=== PATIENT | female | born 1940 | race Caucasian/White ===

== ENCOUNTER 2018-05-04 18:30 | Emergency (ER) | payer MEDICARE, BC ==
[~2018-05-04] VITALS: Ht 160 cm; Wt 57.0 kg
[~2018-05-04 18:30] MED LIST: ATOR20TA15 PO; BIOT50005 PO; CLOP75TA PO; DETR2TAB PO; LEVO75TA3 PO; METO1TAB42 PO; PARO10TA3 PO; PRAM1TAB PO; PROB1CAP25
[2018-05-04 19:04] VITALS: BP 129/58; PULSE 54; RESP 18; TEMP 98.1; O2SAT 96
[2018-05-04 23:23] LABS: AUTOMATED NEUTROPHIL # 2.8 TH/MM3 (1.8-7.7); BASOPHIL % 0.6 % (0.0-2.0); EOSINOPHIL # 0.1 TH/MM3 (0-0.4); EOSINOPHIL % 1.7 % (0.0-4.0); HEMATOCRIT 35.3 % (35.0-46.0); HEMOGLOBIN 11.9 GM/DL (11.6-15.3); LYMPH % 36.5 % (9.0-44.0); MEAN CELL VOLUME 86.2 FL (80.0-100.0); MEAN CORPUSCULAR HGB CONC 33.7 % (32.0-36.0); MEAN PLATELET VOLUME 6.8 FL (7.0-11.0); MONO % 10.1 % (0.0-8.0); MONOCYTE # 0.5 TH/MM3 (0-0.9); NEUT % 51.1 % (16.0-70.0); PLATELET COUNT 275 TH/MM3 (150-450); RED CELL DISTRIBUTION WIDTH 13.9 % (11.6-17.2); WHITE BLOOD COUNT 5.4 TH/MM3 (4.0-11.0)
[2018-05-04 23:40] LABS: ALBUMIN 3.5 GM/DL (3.4-5.0); AST (GOT) 15 U/L (15-37); BICARBONATE 26.6 MEQ/L (21.0-32.0); BLOOD UREA NITROGEN 17 MG/DL (7-18); CALCIUM 8.9 MG/DL (8.5-10.1); CHLORIDE 108 MEQ/L (98-107); CREATININE 0.81 MG/DL (0.50-1.00); GLOMERULAR FILTRATION RATE 68 ML/MIN (>89); GLUCOSE,RANDOM 96 MG/DL (74-106); SODIUM (NA) 142 MEQ/L (136-145)
[2018-05-04 23:43] LABS: ALKALINE PHOSPHATASE 84 U/L (45-117); ALT (GPT) 18 U/L (10-53); TOTAL BILIRUBIN ADULT 0.4 MG/DL (0.2-1.0); TOTAL PROTEIN 7.3 GM/DL (6.4-8.2)
[2018-05-04 23:51] LABS: PROTHROMBIN TIME - PATIENT 10.4 SEC (9.8-11.6)
--- NOTE | 2018-05-05 01:05 | PD ---
HPI Chief Complaint: GI Complaint Time Seen by Provider: 22:47 Travel History International Travel<30 days: No Contact w/Intl Traveler<30days: No Traveled to known affect area: No History of Present Illness HPI Patient is a 77-year-old female who comes in complaining of diarrhea area. She says that she has had diarrhea for several months, but yesterday she had an episode where she could not control it. She says it has been black in color. She does have history of taking iron, but says she has not taken in the past few days. She says that she called her gastroenterology office and they told her she needed to come to the emergency department. She denies any abdominal pain. She denies any feelings of dizziness, shortness of breath, palpitations. She denies any recent antibiotic use. She denies any nausea or vomiting. Nothing has seemed to make the symptoms better or worse. Severity is mild to moderate. 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 2014) Coronary Artery Disease: Yes Diabetes: No Diminished Hearing: No Gastrointestinal Disorders: Yes GERD: Yes Genitourinary: Yes (NEEDS SURGERY, BLADDER PROLAPSE) Headaches: Yes Hiatal Hernia: No Immune Disorder: No Kidney Stones: No Musculoskeletal: No Neurologic: Yes (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 DOING NOTHING AT THIS TIME) Psychiatric: No Reproductive: Yes Respiratory: No Immunizations Current: Yes Migraines: No Radiation Therapy: No Renal Failure: No Seizures: No Sickle Cell Disease: No Sleep Apnea: No Thyroid Disease: Yes Ulcer: No Tetanus Vaccination: < 5 Years Influenza Vaccination: Yes ?: Not Menopausal: Yes Past Surgical History Abdominal Surgery: Yes (HYSTERECTOMY) AICD: No Appendectomy: Yes (IN 1977) Arteriovenous Shunt: No Cardiac Surgery: No Ear Surgery: No Endocrine Surgery: No Eye Surgery: No Genitourinary Surgery: Yes (BLADDER TUCK 1 MONTH AGO, PESSARY IN PLACE) Gynecologic Surgery: Yes (HYSTERECTOMY) Hysterectomy: Yes Insulin Pump: No Joint Replacement: No Oral Surgery: Yes (BOTH JAWS BONE AND METAL IMPLANT) Pacemaker: No Thoracic Surgery: No Other Surgery: Yes Social History Alcohol Use: No Tobacco Use: No Substance Use: No Allergies-Medications (Allergen,Severity, Reaction): Coded Allergies: aspirin (Verified Allergy, Severe, 05/04/18) nausea codeine (Unverified Allergy, Severe, Nausea/Vomiting, 05/04/18) oxycodone (Verified Allergy, Severe, 05/04/18) nausea Reported Meds & Prescriptions Reported Meds & Active Scripts Active Detrol (Tolterodine Tartrate) 2 Mg Tab 2 Mg PO BID Reported Culturelle Advanced Immun (Probiotic Product) 1 Cap Cap Clopidogrel (Clopidogrel Bisulfate) 75 Mg Tab 75 Mg PO DAILY Levothyroxine (Levothyroxine Sodium) 75 Mcg Tab 75 Mcg PO DAILY Pramipexole (Pramipexole Dihydrochloride) 1 Mg Tab 1 Mg PO TID Metoprolol Succinate ER 24 HR (Metoprolol Succinate) 25 Mg Tab 25 Mg PO BID Paroxetine (Paroxetine HCl) 10 Mg Tab 10 Mg PO DAILY Biotin 5,000 Mcg Cap 5,000 Mcg PO Atorvastatin (Atorvastatin Calcium) 20 Mg Tab 20 Mg PO HS Review of Systems Except as stated in HPI: all other systems reviewed are Neg General / Constitutional: No: Fever, Chills HENT: No: Headaches Cardiovascular: No: Chest Pain or Discomfort Respiratory: No: Shortness of Breath Gastrointestinal: Positive: Diarrhea, No: Nausea, Vomiting, Abdominal Pain Genitourinary: No: Dysuria Musculoskeletal: No: Myalgias, Edema Skin: No Rash, No Change in Pigmentation Neurologic: No: Weakness, Dizziness Physical Exam Narrative GENERAL: Awake and alert, in no acute distress. SKIN: Focused skin assessment warm/dry. HEAD: Atraumatic. Normocephalic. EYES: Pupils equal and round. No scleral icterus. ENT: Mucous membranes pink and moist. NECK: Trachea midline. No JVD. CARDIOVASCULAR: Regular rate and rhythm. No murmur appreciated. RESPIRATORY: No accessory muscle use. Clear to auscultation. Breath sounds equal bilaterally. GASTROINTESTINAL: Abdomen soft, non-tender, nondistended. MUSCULOSKELETAL: No obvious deformities. No clubbing. No cyanosis. No edema. NEUROLOGICAL: Awake and alert. No obvious cranial nerve deficits. Motor grossly within normal limits. Normal speech. PSYCHIATRIC: Appropriate mood and affect; insight and judgment normal. Data Data Last Documented VS Vital Signs Date Time Temp Pulse Resp B/P (MAP) Pulse Ox O2 Delivery O2 Flow Rate FiO2 05/04/18 19:04 98.1 54 18 129/58 (81) 96 Orders Orders Iv Access Insert/Monitor (05/04/18 22:49) Complete Blood Count With Diff (05/04/18 22:49) Comprehensive Metabolic Panel (05/04/18 22:49) Act Partial Throm Time (Ptt) (05/04/18 22:49) Prothrombin Time / Inr (Pt) (05/04/18 22:49) Type And Screen (05/04/18 22:49) Ct Abd/Pel W Iv Contrast(Rout) (05/05/18 ) Ed Discharge Order (05/05/18 02:41) Iohexol 350 Inj (Omnipaque 350 Inj) (05/05/18 02:00) Labs Laboratory Tests Test 05/04/18 23:05 White Blood Count 5.4 TH/MM3 Red Blood Count 4.10 MIL/MM3 Hemoglobin 11.9 GM/DL Hematocrit 35.3 % Mean Corpuscular Volume 86.2 FL Mean Corpuscular Hemoglobin 29.0 PG Mean Corpuscular Hemoglobin Concent 33.7 % Red Cell Distribution Width 13.9 % Platelet Count 275 TH/MM3 Mean Platelet Volume 6.8 FL Neutrophils (%) (Auto) 51.1 % Lymphocytes (%) (Auto) 36.5 % Monocytes (%) (Auto) 10.1 % Eosinophils (%) (Auto) 1.7 % Basophils (%) (Auto) 0.6 % Neutrophils # (Auto) 2.8 TH/MM3 Lymphocytes # (Auto) 2.0 TH/MM3 Monocytes # (Auto) 0.5 TH/MM3 Eosinophils # (Auto) 0.1 TH/MM3 Basophils # (Auto) 0.0 TH/MM3 CBC Comment DIFF FINAL Differential Comment Prothrombin Time 10.4 SEC Prothromb Time International Ratio 1.0 RATIO Activated Partial Thromboplast Time 26.8 SEC Blood Urea Nitrogen 17 MG/DL Creatinine 0.81 MG/DL Random Glucose 96 MG/DL Total Protein 7.3 GM/DL Albumin 3.5 GM/DL Calcium Level 8.9 MG/DL Alkaline Phosphatase 84 U/L Aspartate Amino Transf (AST/SGOT) 15 U/L Alanine Aminotransferase (ALT/SGPT) 18 U/L Total Bilirubin 0.4 MG/DL Sodium Level 142 MEQ/L Potassium Level 3.8 MEQ/L Chloride Level 108 MEQ/L Carbon Dioxide Level 26.6 MEQ/L Anion Gap 7 MEQ/L Estimat Glomerular Filtration Rate 68 ML/MIN MDM Medical Decision Making Medical Screen Exam Complete: Yes Emergency Medical Condition: Yes Medical Record Reviewed: Yes Differential Diagnosis GI bleed versus dehydration versus electrolyte abnormality versus colitis versus chronic diarrhea Narrative Course Patient is a 69-year-old female comes in complaining of diarrhea. Exam shows no acute abnormalities, abdomen is soft and nontender. IV established, labs sent. Labs show hemoglobin of 11.9. There are no acute abnormalities. Patient pending CT scan, will likely be discharged home to follow up with her PCP. [facility] Point of Care Internal Pos. & Neg. Controls: Passed Fecal Specimen Occult Blood: Negative Mary Ellen Bethea MD May 05, 2018 01:05
[2018-05-05] MEDS ORDERED: IOHEXOL 350 MG/ML 10 ML VIAL (for RAD DIAG) IVCONTRAST ONE (02:00)
--- NOTE | 2018-05-05 02:38 | RADRPT ---
EXAM DATE: 05/05/2018 2:27 AM EDT AGE/SEX: 77 years / Female INDICATIONS: Abdomen pain. CLINICAL DATA: This is the patient's initial encounter. Patient reports that signs and symptoms have been present for 1 day and indicates a pain score of 4/10. MEDICAL/SURGICAL HISTORY: Stroke. Cardiovascular disease. Aneurysm, intracranial. Craniotomy. Hysterectomy. CABG. Appendectomy.Bladder. ORAL CONTRAST: No oral contrast ingested. RADIATION DOSE: 6.64 CTDI (mGy) COMPARISON: No prior exams available for comparison. TECHNIQUE: Multiple contiguous axial images were obtained through the abdomen and pelvis following b olus infusion of 100 ml Omnipaque 350 (iohexol) nonionic water-soluble contrast as a single exam do se. No oral contrast ingested. Using automated exposure control and adjustment of the mA and/or kV a ccording to patient size, the radiation dose was kept as low as reasonably achievable to obtain optim al diagnostic quality images. FINDINGS: Lower Lungs: The visualized lower lungs are clear. Liver: The liver has a homogeneous density without space-occupying lesion. There is no dilation of th e biliary tree. Spleen: Homogeneous density without enlargement. Pancreas: Unremarkable without mass or calcification. Kidneys: 2.8 cm cyst in the lower pole of the left kidney. 2.3 cm cyst in the lower pole of the righ t kidney. No evidence of hydronephrosis. Adrenal Glands: Unremarkable. Aorta: Diffuse aortic calcification. Aortic diameter within normal limits. Bowel/Mesentery: Scattered colonic diverticula. No evidence of acute diverticulitis. No evidence of bowel dilatation. Appendix not identified. Nonspecific wall thickening of the gastric antrum indicati ng possible gastritis or peptic ulcer disease. No free air or free fluid. Small hiatal hernia. Abdominal Wall: Intact. Retroperitoneum: No evidence of adenopathy in the retrocrural, para-aortic, or deep pelvic regions. Bladder: Contours are smooth. Reproductive Organs: Status post hysterectomy. Inguinal: 2 cm fat-containing inguinal hernia on the right. Bony Structures: Prominent facet arthrosis of the lower lumbar spine. CONCLUSION: 1. Gastric antral wall thickening. Question gastritis or peptic ulcer disease. 2. No other acute findings in the abdomen and pelvis. 3. Colonic diverticula. 4. Bilateral renal cysts. 5. 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 6. Fat-containing right inguinal hernia. Electronically signed by: Dada Martínez MD 05/05/2018 2:37 AM EDT
--- NOTE | 2018-05-05 02:47 | PD ---
Physical Exam Date Seen by Provider: May 05, 2018 Time Seen by Provider: 02:41 Narrative GENERAL: This is a well-nourished, well-developed patient, in no apparent distress. SKIN: No rashes, ecchymoses or lesions. Warm and dry. HEAD: Atraumatic. Normocephalic. EYES: PERRL, EOMI, no discharge or injection. No scleral icterus. EARS: Clear NOSE: Nasal turbinates appear normal. THROAT: Mucosa pink and moist. Airway patent. NECK: Trachea midline. supple, moves head freely. LUNGS: Clear to auscultation. CV: Regular in rhythm. ABDOMEN: Soft nontender. EXT: No clubbing cyanosis or edema. Data Data Last Documented VS Vital Signs Date Time Temp Pulse Resp B/P (MAP) Pulse Ox O2 Delivery O2 Flow Rate FiO2 05/04/18 19:04 98.1 54 18 129/58 (81) 96 Orders Orders Iv Access Insert/Monitor (05/04/18 22:49) Complete Blood Count With Diff (05/04/18 22:49) Comprehensive Metabolic Panel (05/04/18 22:49) Act Partial Throm Time (Ptt) (05/04/18 22:49) Prothrombin Time / Inr (Pt) (05/04/18 22:49) Type And Screen (05/04/18 22:49) Ct Abd/Pel W Iv Contrast(Rout) (05/05/18 ) Ed Discharge Order (05/05/18 02:41) Labs Laboratory Tests Test 05/04/18 23:05 White Blood Count 5.4 TH/MM3 Red Blood Count 4.10 MIL/MM3 Hemoglobin 11.9 GM/DL Hematocrit 35.3 % Mean Corpuscular Volume 86.2 FL Mean Corpuscular Hemoglobin 29.0 PG Mean Corpuscular Hemoglobin Concent 33.7 % Red Cell Distribution Width 13.9 % Platelet Count 275 TH/MM3 Mean Platelet Volume 6.8 FL Neutrophils (%) (Auto) 51.1 % Lymphocytes (%) (Auto) 36.5 % Monocytes (%) (Auto) 10.1 % Eosinophils (%) (Auto) 1.7 % Basophils (%) (Auto) 0.6 % Neutrophils # (Auto) 2.8 TH/MM3 Lymphocytes # (Auto) 2.0 TH/MM3 Monocytes # (Auto) 0.5 TH/MM3 Eosinophils # (Auto) 0.1 TH/MM3 Basophils # (Auto) 0.0 TH/MM3 CBC Comment DIFF FINAL Differential Comment Prothrombin Time 10.4 SEC Prothromb Time International Ratio 1.0 RATIO Activated Partial Thromboplast Time 26.8 SEC Blood Urea Nitrogen 17 MG/DL Creatinine 0.81 MG/DL Random Glucose 96 MG/DL Total Protein 7.3 GM/DL Albumin 3.5 GM/DL Calcium Level 8.9 MG/DL Alkaline Phosphatase 84 U/L Aspartate Amino Transf (AST/SGOT) 15 U/L Alanine Aminotransferase (ALT/SGPT) 18 U/L Total Bilirubin 0.4 MG/DL Sodium Level 142 MEQ/L Potassium Level 3.8 MEQ/L Chloride Level 108 MEQ/L Carbon Dioxide Level 26.6 MEQ/L Anion Gap 7 MEQ/L Estimat Glomerular Filtration Rate 68 ML/MIN [facility] Medical Record Reviewed: Yes Supervised Visit with JENNIFER: Yes Interpretation(s) Last 24 hours Impressions Abdomen/Pelvis CCBC & BMP Diagram 05/04/18 23:05 Total Protein 7.3, Albumin 3.5, Calcium Level 8.9, Alkaline Phosphatase 84, Aspartate Amino Transf (AST/SGOT) 15, Alanine Aminotransferase (ALT/SGPT) 18, Total Bilirubin 0.4 T 05/05/18 0000 Signed Impressions: CONCLUSION: 1. Gastric antral wall thickening. Question gastritis or peptic ulcer disease. 2. No other acute findings in the abdomen and pelvis. 3. Colonic diverticula. 4. Bilateral renal cysts. 5. 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 6. Fat-containing right inguinal hernia. Differential Diagnosis . Narrative Course I was asked to review the patient's CAT scan and make a disposition on this patient. The CAT scan has been read and shows no acute intra-abdominal process. Patient does have diverticuli but no obvious diverticulitis. Patient's hemoglobin and white count are normal. Patient's exam is reassuring. Patient states that she has not had diarrhea in the last 24 hours. This is This is diarrhea, dark stools Diagnosis Primary Impression: Diarrhea Additional Impression: Dark stools Patient Instructions: General Instructions Additional Instruction: Rest. Increase fluids. Contact Dr. Molina your GI doctor in the morning for close follow-up. Follow-up with Dr. Page your primary care doctor this week for recheck. Return to the ER for worsening symptoms. Med/Other Pt SpecificInfo: No Change to Meds Disposition: 01 DISCHARGE HOME Condition: Stable Sher Lynne May 05, 2018 02:47
== END 2018-05-05 05:50 | disposition home or self-care (01) ==
LOC: NEPD 18:30
DX: R19.7 Diarrhea, unspecified (principal); K57.30 Diverticulosis of large intestine without perforation or abscess without bleeding; K40.90 Unilateral inguinal hernia, without obstruction or gangrene, not specified as recurrent; N28.1 Cyst of kidney, acquired; E78.00 Pure hypercholesterolemia, unspecified; E07.9 Disorder of thyroid, unspecified; I25.10 Atherosclerotic heart disease of native coronary artery without angina pectoris; I48.91 Unspecified atrial fibrillation; Z79.02 Long term (current) use of antithrombotics/antiplatelets
CPT/HCPCS: 74177; 80053; 85025; 85610; 85730; 86850; 86900; 86901; 99284; Q9967